=== PATIENT | female | born 1950 | race Hispanic/Latino ===

== ENCOUNTER 2018-07-25 12:21 | Emergency (ER) | payer MEDICARE, BC ==
[2018-07-25 12:28] VITALS: O2SAT 99
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
[2018-07-25] MEDS ORDERED: Lidocaine 1% Inj (20ml) ONE (13:40)
--- NOTE | 2018-07-25 14:23 | ED PDOC ---
HPI: Trauma/Fall - HPI Time Seen by Provider: 07/25/18 12:31 Chief Complaint (Nursing): Finger,Hand,&Wrist Chief Complaint (Provider): Fall History Per: Patient History/Exam Limitations: no limitations Onset/Duration Of Symptoms: Days Location Of Injury: Right: Arm, Leg (right knee), Left: Hand (Left 5th digit) Additional Complaint(s): 67 year old female presents to the ED for an evaluation of left pinky, right arm and right knee pain. Patient reports she had a mechanical fall against the door while playing with her grandson. After the fall, she felt dizzy which resolved. Currently, patient states she has swelling and pain on the left 5th digit. Otherwise she denies any injuries, medication prior to arrival, weakness, numbness or rash. PMD: Dr. Lunsford Past Medical History Reviewed: Historical Data, Nursing Documentation, Vital Signs Vital Signs: Last Vital Signs Temp 97.9 F 07/25/18 12:25 Pulse 62 07/25/18 12:25 Resp 18 07/25/18 12:25 BP 146/93 H 07/25/18 12:25 Pulse Ox 99 07/25/18 12:25 - Medical History PMH: No Chronic Diseases - Family History Family History: States: Unknown Family Hx - Home Medications Home Medications: Ambulatory Orders Medication Instructions Recorded RX: Diclofenac Potassium 50 mg PO BID #20 tablet 07/25/18 - Allergies Allergies/Adverse Reactions: Allergies Allergy/AdvReac Type Severity Reaction Status Date / Time codeine Allergy RASH Verified 07/25/18 12:25 Sulfa (Sulfonamide Allergy RASH Verified 07/25/18 12:25 Antibiotics) Review of Systems ROS Statement: Except As Marked, All Systems Reviewed And Found Negative Constitutional: Negative for: Fever, Chills Musculoskeletal: Positive for: Hand Pain (left), Leg Pain (right), Other (right arm pain) Skin: Negative for: Rash Neurological: Negative for: Weakness, Numbness Physical Exam - Reviewed Nursing Documentation Reviewed: Yes Vital Signs Reviewed: Yes - Physical Exam Appears: Positive for: Well, Non-toxic, No Acute Distress Head Exam: Positive for: ATRAUMATIC, NORMAL INSPECTION, NORMOCEPHALIC Skin: Positive for: Normal Color, Warm, Dry. Negative for: Rash Eye Exam: Positive for: EOMI, Normal appearance, PERRL Cardiovascular/Chest: Positive for: Regular Rate, Rhythm. Negative for: Murmur Respiratory: Positive for: Normal Breath Sounds. Negative for: Decreased Breath Sounds, Wheezing, Respiratory Distress Extremity: Positive for: Normal ROM (Anterior and posterior drawer test, apley grind test and valgus varus test are negative), Tenderness (to palpation on the left knee ), Other (Left 5th digit ecchymosis, dislocated. No joint effusion injury with palpitation on ulnar aspect of distal radius with inflammation ) Neurologic/Psych: Positive for: Alert, Oriented (x3) - ECG O2 Sat by Pulse Oximetry: 99 (RA) Pulse Ox Interpretation: Normal Medical Decision Making Medical Decision Making: Time: 1251 Initial Impression: Head w/o Contrast CT Hand 3 Views BI [RAD] Knee 4 or more Views RT [RAD] Toradol 60mg Acetaminophen 650mg Wrist, Right 3 Views [RAD] Reevaluation Time: 1345 Wrist, Right 3 Views [RAD] PROCEDURE: JOINT REDUCTION Time: 1251 Consent: Informed consent, after discussion of the risks, benefits, and alternatives to the procedure, was obtained. Location: left 5t digit Sedation: lidocaine 1% Pre-procedure neurovascular status: Distal neurovascular status intact. Post-procedure neurovascular status: Distal neurovascular status remains intact. Confirmation: Post-reduction films confirm reduction. See post-procedure X-Ray interpretation. Post-procedure: Patient tolerated the procedure well with no immediate complications. 1324 PROCEDURE: CT HEAD WITHOUT CONTRAST. FINDINGS: HEMORRHAGE: No intracranial hemorrhage. BRAIN: No mass effect or edema. Mild atrophy. No significant chronic microvascular ischemic changes. VENTRICLES: Unremarkable. No hydrocephalus. CALVARIUM: Unremarkable. PARANASAL SINUSES: Unremarkable as visualized. No significant inflammatory changes. MASTOID AIR CELLS: Unremarkable as visualized. No inflammatory changes. OTHER FINDINGS: None. IMPRESSION: No acute intracranial pathology. Mild age-rela Right wrist X-ray: non-displaced fracture to ulna aspect of distal radius, as read by PA Knee X-ray: DJD, no fracture, no dislocation, as read by PA Hand X-ray: dislocation on left 5th digit PIP. On evaluation, post joint reduction there is no dislocation on 5th digit, as read by PA Upon provider evaluation patient is medically stable, and requires no further treatment in the ED at this time. Patient will be discharged home with Diclofenac Potassium 50 mg for radius fracture. Counseling was provided and all questions were answered regarding diagnosis and need for follow up with Dr. Lopez and Dr. Lee. There is agreement to discharge plan. Return if symptoms persist or worsen. Scribe Attestation: Documented by Anahi Patricia, acting as a scribe forDominik Marie PA-C Provider Scribe Attestation: All medical record entries made by the Scribe were at my direction and personally dictated by me. I have reviewed the chart and agree that the record accurately reflects my personal performance of the history, physical exam, medical decision making, and the department course for this patient. I have also personally directed, reviewed, and agree with the discharge instructions and disposition. Disposition - Clinical Impression Clinical Impression: Distal radius fracture, left - Patient ED Disposition Is Patient to be Admitted: No Doctor Will See Patient In The: Office Counseled Patient/Family Regarding: Studies Performed, Diagnosis, Need For Followup, Rx Given - Disposition Referrals: Rachel Lopez MD [Staff Provider] - Sam Lee MD [Medical Doctor] - Disposition: Routine/Home Disposition Time: 15:16 Condition: IMPROVED Prescriptions: RX: Diclofenac Potassium 50 mg PO BID #20 tablet Instructions: Radius Fracture, Radius Fracture (DC) Forms: [employer] (Telugu)
--- NOTE | 2018-07-25 14:26 | RAD ---
Date of service: 07/25/2018 PROCEDURE: Right Knee Radiographs. HISTORY: s/p fall r/o fx COMPARISON: None. FINDINGS: BONES: No acute fracture. JOINTS: Compartmental narrowing with degenerative spurring. JOINT EFFUSION: None. OTHER FINDINGS: None. IMPRESSION: No demonstrated fracture or dislocation. Degenerative changes.
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
[2018-07-25] MEDS ORDERED: Lidocaine 1% Inj (20ml) IJ ONE (14:34)
[2018-07-25 14:54] VITALS: BP 141/87; PULSE 65; RESP 16; TEMP 98.1
== END 2018-07-25 14:54 | disposition home or self-care (01) ==
LOC: H.ER 12:21
DX: S52.501A Unspecified fracture of the lower end of right radius, initial encounter for closed fracture (principal); S52.502A Unspecified fracture of the lower end of left radius, initial encounter for closed fracture; Z88.2 Allergy status to sulfonamides; W18.30XA Fall on same level, unspecified, initial encounter
CPT/HCPCS: 25560; 70450; 73110; 73130; 73140; 73564; 96372; 99284; J1885